=== PATIENT | female | born 1980 | race Caucasian/White ===

== ENCOUNTER 2019-11-23 23:49 | Observation (INO) | payer OTHER ==
[~2019-11-23] VITALS: Ht 162.6 cm; Wt 69.5 kg
[2019-11-24] VITALS (275 sets, daily range): BP systolic 109–128; BP diastolic 66–78; PULSE 63–108; TEMP 37.1; O2SAT 78–100
[2019-11-24] MEDS ORDERED: DULERA1 ARO IH (00:08)
[2019-11-24] MEDS ORDERED: PROVENTIL0.09 MG/A1 IH (00:08)
[2019-11-24] MEDS ORDERED: PREDNISONE20 MG PO ×2 (00:12)
[2019-11-24 03:13] LABS: BILIRUBIN,TOTAL 0.4 mg/dL (0.0-1.0); CREATININE, serum 0.9 (0.52-1.25); POTASSIUM 3.9 mmol/L (3.4-5.0); TOTAL PROTEIN 8.3 gm/dL (6.4-8.2)
--- NOTE | 2019-11-24 03:45 | NUR ---
RECEIVED REPORT FROM PATIENCE GONZÁLES IN ER. AWAITING ARRIVAL OF PT TO ICU 8.
[2019-11-24 04:08] LABS: HEMATOCRIT 38.9 % (37.0-47.0); HEMOGLOBIN 13.2 g/dl (12.5-16.0); MEAN CELL VOLUME 94 fl (80.0-100.0); MEAN CORPUSCULAR HEMOGLOBIN 32 pg (27.0-31.0); MEAN CORPUSCULAR HGB CONC 34 g/dl (33.0-37.0); MEAN PLATELET VOLUME 10.1 fl (7.4-10.4); PLATELET COUNT 443 K/mm3 (130-400); RED BLOOD COUNT 4.16 M/mm3 (4.10-5.30); REDCELL DISTRIBUTION WIDTH-CV 11.8 % (11.5-14.5)
--- NOTE | 2019-11-24 04:14 | NUR ---
PT ARRIVES O ICU 8 VIA STRETCHER ON 2L VIA NC. PT ABLE TO TRANSFER SELF TO ICU BED. PT NOTED TO BE SHAKING, STATES " I HAD A LOT OF TREATMENTS AND THEY MAKE ME JITTERY." STEADY GAIT NOTED. PLACED ON BEDSIDE CONTINUOUS MONITOR AND CALL LIGHT SYSTEM EDUCATION GIVEN, PT VERBALIZED UNDERSTANDING. PT ABLE TO TALK IN FULL SENTENCES BUT DOES APPEAR TO HAVE INCREASE WORK OF BREATHING. NO ACCESSORY MUSCLE USE NOTED AT THIS TIME. ON 2L VIA NC POX 98-100%. PT STATES SHE STILL FEELS QUITE A BIT FO TIGHTNESS IN HER CHEST AND FEELS LIKE SHE CAN'T GET A DEEP ENOUGH BREATH. RT AT BEDSIDE FOR BRIEF ASSESSMENT AND EXPLAIN BREATHING TX ORDERS, PT VERBALIZED UNDERSTANDING. WILL CONTINUE TO MONITOR CLOSELY. VSS.
[2019-11-24 04:24] LABS: BASO # 0.1 (0.0-0.2); BASO % 0.4 % (0.0-2.0); EOS # 0.3 (0.0-0.7); EOS % 2.8 % (0-4.0); GRAN # 4.7 (1.4-6.5); LYMPH # 5.6 (1.2-3.4); LYMPH % 48.8 % (20.0-51.0); MONO # 0.8 (0.1-0.6); MONO % 6.7 % (1.7-9.3)
[2019-11-24 04:56] LABS: EOSINOPHIL 8 % (0-4); LYMPHOCYTE 46 % (20.0-51.0); NEUTROPHILS 41 % (42.0-75.2); PLATELET ESTIMATE NORMAL (NORMAL)
--- NOTE | 2019-11-24 07:05 | NUR ---
DR PAZ AT BEDSIDE FOR ASSESSMENT AND DISCUSSED POC WITH PT. PT PLACED ON RA AT THIS TIME AND STAYS ABOVE 94% AT THIS TIME. NOTABLE RASPY VOICE WORSE COMPARED TO EARLIER, PHYSICIAN TAKES A LOOK IN THROAT AND STATES NO CONCERN AT THIS TIME.
--- NOTE | 2019-11-24 07:30 | NUR ---
EDUCATED PT ON IV INFILTRATION, DENIES WANTING A WARM BLANKET AT THIS TIME.
--- NOTE | 2019-11-24 09:18 | NUR ---
WANDY met with the patient to complete initial intake. The patient moved to [place] approximately two months ago. The patient lives in [place] with her boyfriend Rose Oakes. The patient denies DME use and is independent with ADLs. The patient does not have a PCP set up. But she has an appointment set up at the end of December at the [facility] office. The patient wants to contact [facility] to establish care there. The patient will receive medications at [facility]. The patient does not have advanced directives in the EMR. She thinks she may have one filled out in [facility] and it would designate her aunt Alice Kenney. However, the patient was interested in DPOA-HC form and would like to designate her boyfriend. DPOA-HC form provided. The patient plans to return home at discharge. There are no additional needs at this time.
--- NOTE | 2019-11-24 12:23 | NUR ---
PT transported to room 307 via wheelchair and care turned over to receiving RN.
--- NOTE | 2019-11-24 19:38 | NUR ---
Pt up to floor from the ICU today, med rec completed, no complaints since being on the floor.
--- NOTE | 2019-11-24 20:00 | NUR ---
Initial shift assessment done- denies pain, denies SOB, states she is starting to feel "tight" again and wanting a treatment- respiratory therapy up on floor to give night treatments now- o2 sat 97% on RA, states overall feeling much better tonight- IV fluids remain at 200cc/hr-will call PA to see if pt still needs IV fluids- voiding good amounts
[2019-11-25 00:10] VITALS: BP 129/78; PULSE 73; TEMP 97.5
[2019-11-25 03:56] VITALS: BP 122/80; PULSE 87; TEMP 97.6
[2019-11-25 06:57] LABS: BASO % 0.1 % (0.0-2.0); EOS # 0.2 (0.0-0.7); EOS % 0.7 % (0-4.0); GRAN # 17.7 (1.4-6.5); GRAN % 86.7 % (42.2-75.2); HEMOGLOBIN 11.3 g/dl (12.5-16.0); LYMPH # 1.3 (1.2-3.4); LYMPH % 6.3 % (20.0-51.0); MEAN CELL VOLUME 96 fl (80.0-100.0); MEAN CORPUSCULAR HEMOGLOBIN 33 pg (27.0-31.0); MEAN CORPUSCULAR HGB CONC 34 g/dl (33.0-37.0); RED BLOOD COUNT 3.48 M/mm3 (4.10-5.30); REDCELL DISTRIBUTION WIDTH-CV 12.2 % (11.5-14.5)
[2019-11-25 07:01] LABS: HEMATOCRIT 33.5 % (37.0-47.0); PLATELET COUNT 334 K/mm3 (130-400)
[2019-11-25 07:14] LABS: CALCIUM 9.2 mg/dL (8.4-10.2); CREATININE, serum 0.58 (0.52-1.25); POTASSIUM 4.2 mmol/L (3.4-5.0)
[2019-11-25 08:10] VITALS: BP 120/89; PULSE 74; TEMP 98.1
--- NOTE | 2019-11-25 08:19 | NUR ---
PATIENT ASSESSMENT COMPLETED. SHE HAS A DRY COUGH AND LUNGS ARE TIGHT UPON ASCULATION. IS A LITTLE SHORT OF BREATH WHILE LAYING IN BED, BUT FEELS ALOT BETTER. DENIES PAIN AT THIS TIME.
--- NOTE | 2019-11-25 09:36 | NUR ---
PATIENT RESTING IN BED NO NEEDS EXPRESSED AT THIS TIME.
[2019-11-25 11:48] VITALS: BP 131/82; PULSE 70; TEMP 97.9
[2019-11-25] MEDS ORDERED: MEDROL 4MG DOSPA4 MG PO (11:56)
--- NOTE | 2019-11-25 12:40 | NUR ---
DISCHARGE PAPERWORK REVIEWED WITH PATIENT SHE DENIES OTHER QUESTIONS.
--- NOTE | 2019-11-25 13:00 | NUR ---
PATIENT DISCHARGED TO HOME VIA WHEELCHAIR. BELONGINGS ARE GATHERED AND SENT WITH HER. SHE DENIES OTHER NEEDS AT THIS TIME.
== END 2019-11-25 12:45 | disposition home or self-care (01) ==
LOC: COL.ER 23:49 → ICU 11-24 02:57 → MEDICAL 11-24 02:57 → ICU 11-24 02:57 → MEDICAL 11-24 11:20
PROVIDERS: Emergency Medicine
DX: J45.901 Unspecified asthma with (acute) exacerbation (principal); Z79.899 Other long term (current) drug therapy; Z87.891 Personal history of nicotine dependence; Z90.710 Acquired absence of both cervix and uterus
CPT/HCPCS: G0378; J1650; J2920; J2930; J3475; J7030; J7512

== ENCOUNTER 2019-12-09 18:45 | Inpatient (IN) | payer OTHER ==
[~2019-12-09] VITALS: Ht 162.6 cm; Wt 69.5 kg
[~2019-12-09 18:45] MED LIST: DULERA1 ARO IH; MEDROL 4MG DOSPA4 MG PO; PREDNISONE20 MG PO; PROVENTIL0.09 MG/A1 IH
[2019-12-09] MEDS ORDERED: MEDROL 4MG DOSPA4 MG PO (19:28)
--- NOTE | 2019-12-09 21:21 | NUR ---
Report received from PATIENCE Hernández
--- NOTE | 2019-12-09 21:30 | NUR ---
Patient arrived to medical floor. Assessment complete. Lungs diminished in bases. Heart sounds normal. Bowels active x4. Pulses strong throughout. denies pain but reports chest tightness. Patient currently on room air. Orientated to medical floor. All questions answered. Velvet COTE notified of patient arrival.
[2019-12-09 21:41] VITALS: BP 121/68; PULSE 106; TEMP 98.8
--- NOTE | 2019-12-09 22:00 | NUR ---
Respiratory virus swab collected. Patient 89% on room air. Placed on 1.5 liters. Reports chest pain and difficulty breathing. Velvet PROPERTY SUPERVISOR notified. Will add orders for breathing tx. Respiratory notified. Will monitor.
[2019-12-09 23:30] VITALS: BP 123/70; PULSE 101; TEMP 98.3
[2019-12-09 23:37] LABS: BASO % 0.3 % (0.0-2.0); EOS % 0.2 % (0-4.0); GRAN # 7.5 (1.4-6.5); HEMOGLOBIN 11.5 g/dl (12.5-16.0); LYMPH # 0.9 (1.2-3.4); LYMPH % 10.3 % (20.0-51.0); MEAN CELL VOLUME 94 fl (80.0-100.0); MEAN CORPUSCULAR HEMOGLOBIN 32 pg (27.0-31.0); MEAN CORPUSCULAR HGB CONC 34 g/dl (33.0-37.0); MEAN PLATELET VOLUME 9.8 fl (7.4-10.4); MONO # 0.1 (0.1-0.6); MONO % 1.4 % (1.7-9.3); PLATELET COUNT 314 K/mm3 (130-400); RED BLOOD COUNT 3.61 M/mm3 (4.10-5.30); REDCELL DISTRIBUTION WIDTH-CV 11.7 % (11.5-14.5)
[2019-12-09 23:45] LABS: HEMATOCRIT 33.8 % (37.0-47.0)
[2019-12-09 23:49] LABS: ANION GAP 11 mmol/L (7-16); BLOOD UREA NITROGEN 11 mg/dL (7-17); CARBON DIOXIDE 22 mmol/L (22-30); CHLORIDE 104 mmol/L (98-107); CREATININE, serum 0.81 (0.52-1.25); GLUCOSE 163 mg/dL (74-106); POTASSIUM 3.1 mmol/L (3.4-5.0); SODIUM 137 mmol/L (137-145)
[2019-12-10 00:01] LABS: TROPONIN-I < 0.012 ng/mL (0.000-0.035)
--- NOTE | 2019-12-10 02:43 | NUR ---
PT SLEEPING AND WAS ON ROOM AIR AND VITALS WERE STABLE ON ROOM AIR 02 SAT AT 98% AND HEART RATE AND 109. NO DISTRESS NOTED
[2019-12-10 03:48] VITALS: BP 107/68; PULSE 83; TEMP 98.6
--- NOTE | 2019-12-10 04:08 | NUR ---
Resting in bed. Denies needs. Denies pain. Call light in reach.
--- NOTE | 2019-12-10 06:17 | NUR ---
Patient had uneventful night. Resting in bed this AM. Call light in reach.
[2019-12-10 06:30] LABS: BASO % 0.1 % (0.0-2.0); GRAN # 9.2 (1.4-6.5); GRAN % 89.5 % (42.2-75.2); HEMOGLOBIN 11.1 g/dl (12.5-16.0); LYMPH # 0.9 (1.2-3.4); LYMPH % 8.5 % (20.0-51.0); MEAN CELL VOLUME 94 fl (80.0-100.0); MEAN CORPUSCULAR HEMOGLOBIN 31 pg (27.0-31.0); MEAN CORPUSCULAR HGB CONC 34 g/dl (33.0-37.0); MEAN PLATELET VOLUME 9.9 fl (7.4-10.4); MONO # 0.1 (0.1-0.6); MONO % 0.8 % (1.7-9.3); PLATELET COUNT 328 K/mm3 (130-400); RED BLOOD COUNT 3.53 M/mm3 (4.10-5.30); REDCELL DISTRIBUTION WIDTH-CV 11.8 % (11.5-14.5)
[2019-12-10 06:37] LABS: HEMATOCRIT 33.1 % (37.0-47.0)
[2019-12-10 06:49] LABS: ANION GAP 10 mmol/L (7-16); BLOOD UREA NITROGEN 10 mg/dL (7-17); CALCIUM 8.8 mg/dL (8.4-10.2); CARBON DIOXIDE 22 mmol/L (22-30); CHLORIDE 107 mmol/L (98-107); CREATININE, serum 0.63 (0.52-1.25); GLUCOSE 139 mg/dL (74-106); POTASSIUM 4.3 mmol/L (3.4-5.0); SODIUM 138 mmol/L (137-145)
[2019-12-10 07:00] LABS: TROPONIN-I 6 HR POST INITIAL < 0.012 ng/mL (0.000-0.034)
--- NOTE | 2019-12-10 07:04 | NUR ---
Report given to PATIENCE Whiting
--- NOTE | 2019-12-10 07:40 | NUR ---
DENIED SOB, CHEST PAIN, OR PAIN OF ANY SORT. WENT OVER FAMILY HISTORY, PERFORMED ASSESSMENT, GAVE MEDICATIONS AND EDUCATED ON THEIR USES. PT APPEARS PLEASANT, RECEIVED BREATHING TREATMENT WITH RT. NO OTHER NEEDS AT THIS TIME.
[2019-12-10 08:19] VITALS: BP 108/61; PULSE 78; TEMP 98.6
--- NOTE | 2019-12-10 10:10 | NUR ---
PT REPORTED FEELING SOME CHEST TIGHTNESS, PT HAVING SOB, RESPIRATORY THERAPY CALLED FOR PRN BREATHING TREATMENT. PT CURRENTLY SITTING WITH HOB UP.
--- NOTE | 2019-12-10 11:05 | NUR ---
PT STATED BREATHING TREATMENT HELPED A LOT. DENIES SOB AND CHEST PAIN AT THIS TIME.
[2019-12-10 11:44] VITALS: BP 110/64; PULSE 70; TEMP 98.4
--- NOTE | 2019-12-10 11:45 | NUR ---
PT COMPLAINING OF ABDOMINAL CRAMPING. PA NOTIFIED.
--- NOTE | 2019-12-10 12:05 | NUR ---
Plan: To return home with boyfriennataly Arana [phone] as care support and EMR. patient reports that she does have a DPOA in [place], she declined a new one at this time. Patient currently resides in [facility]. Assess: SW met with patient at her bedside. Patient denied the use of DME and indicated that [facility], with [facility] coming [facility] 08. Patient reports that she gets her medications from the [facility] as well. patient did express some concern about having her VA appointment so far out, and that she could not get anything sooner. plan: Weekend SW indicated that a note would be left for weekday SW to follow up to see if patient could be referred to another provider. SW declined any other services at this time.
--- NOTE | 2019-12-10 16:23 | NUR ---
FRESH ICE WATER BROUGHT IN FOR PT, PT HAS NO OTHER NEEDS AT THIS TIME.
[2019-12-10 17:27] VITALS: BP 130/73; PULSE 86; TEMP 98.4
--- NOTE | 2019-12-10 17:33 | NUR ---
PT HAD ONE EP. OF SOB AND CHEST PAIN RELIEVED BY PRN BREATHING TREATMENT. WATER AT BEDSIDE, BED IN LOW POSITION, DENIES PAIN/DISCOMFORT AT THIS TIME. NO OTHER NEEDS AT THIS TIME. INDEPENDENT IN ROOM. SLIGHT TREMOR IN HAND WHEN GOIND TO GRAB ITEMS.
--- NOTE | 2019-12-10 19:01 | NUR ---
DURING BEDSIDE SHIFT REPORT PT REPORTED SOME SOB AND CHEST TIGHTNESS. RT CALLED FOR BREATHING TREATMENT.
--- NOTE | 2019-12-10 19:15 | NUR ---
Received report from Johanne. Seen patient awake, on a sitting position. on the bedside. She's not wearing her oxygen. She seems to be short of air while talking to us. Called RT to give early breathing treatment. Wiht IV on left wrist infusing NS at 125ml/hr. Denies pain.
[2019-12-10 19:23] VITALS: BP 131/61; PULSE 121; TEMP 98.2
[2019-12-10 23:40] VITALS: BP 122/68; PULSE 90; TEMP 98.3
[2019-12-11 03:49] VITALS: BP 102/58; PULSE 86; TEMP 97.9
--- NOTE | 2019-12-11 06:42 | NUR ---
Patient had an uneventful night. Denies shortness of breath. This morning she states she's been coughing for few minutes after her breathing treatment but was resolved eventually. Denies pain. Will endorse to day shfit nurse.
[2019-12-11 07:49] VITALS: BP 115/66; PULSE 69; TEMP 97.6
[2019-12-11 08:30] VITALS: BP 129/83; PULSE 92; TEMP 98.3
--- NOTE | 2019-12-11 08:45 | NUR ---
PT IN ROOM. PT HAS LABORED BREATHING, BASES OF LUNGS DIMINISHED, TACHYCARDIA PRESENT. CALLED RT FOR PRN BREATHING TREATMENT. PT STATES SHE IS READY TO GO HOME. BED IN LOW POSITION, CALL LIGHT WITHIN REACH, DID NOT EAT BREAKFAST, REFUSED SHOWER HERE, WANTS TO WAIT UNTIL SHE GETS HOME. NO OTHER NEEDS AT THIS TIME. PT DRY COUGHING PRESENT. /SIG OTHER AT BEDSIDE.
[2019-12-11 11:56] VITALS: BP 119/82; PULSE 70; TEMP 97.6
[2019-12-11 16:20] VITALS: BP 112/77; PULSE 67; TEMP 98.5
--- NOTE | 2019-12-11 17:26 | NUR ---
PT STATES BREATHING TREATMENTS SHE GETS NOW ARE MUCH MORE EFFECTIVE. PT HAD ONE EPISODE OF SOB AND CHEST PAIN BEFORE RT MEDICATIONS WERE CHANGED. PT DENIES PAIN OR DISCOMFORT, FLUIDS DC'D, WATER AT BEDSIDE, NO OTHER NEEDS AT THIS TIME.
[2019-12-11 20:38] VITALS: BP 104/66; PULSE 70; TEMP 98.4
--- NOTE | 2019-12-11 21:20 | NUR ---
Pt. sitting up in bed at this time. Pt. is A&OX3, assessment complete. INT to lt. wrist patent. Pt. denies SOA, or pain at this time. Pt. denies further needs, call light within reach.
[2019-12-12 00:01] VITALS: BP 115/82; PULSE 68; TEMP 97.5
[2019-12-12 04:50] VITALS: BP 115/78; PULSE 54; TEMP 98.3
--- NOTE | 2019-12-12 06:18 | NUR ---
Pt. slept well through the night. status unchanged. Pt. denies needs at this time.
--- NOTE | 2019-12-12 07:13 | NUR ---
REPORT TAKEN FROM PATIENCE WARE. PT IN BED COMFORTABLE, EXPRESSES EXCITEMENT AT GOING HOME, SAYS NEW MEDS ARE HELPING A LOT. WATER AT BEDSIDE, NO OTHER NEEDS AT THIS TIME.
[2019-12-12 07:26] VITALS: BP 129/79; PULSE 54; TEMP 97.5
[2019-12-12 07:35] LABS: ALPHA 1 ANTITRYPSIN TOTAL 98.3 mg/dL (())
--- NOTE | 2019-12-12 08:00 | NUR ---
PT IN BED, EXPRESSES EXCITEMENT TO GO HOME. PT TOOK MEDS, ASSESSMENT PERFORMED, BED IN LOW POSITION, WATER AT BEDSIDE, PT DRESSED AND HAS BELONGINGS PACKED FOR DISCHARGE. NO OTHER NEEDS AT THIS TIME.
[2019-12-12] MEDS ORDERED: CLARITIN 1010 MG/TAB PO (10:00)
[2019-12-12] MEDS ORDERED: DULERA1 AR1 IH (10:00)
[2019-12-12] MEDS ORDERED: SPIRIVA RE2.5 MCG/Ac IH (10:01)
[2019-12-12] MEDS ORDERED: SINGULAIR 110 MG/TAB PO (10:03)
[2019-12-12] MEDS ORDERED: PREDNISONE20 MG PO (10:07)
--- NOTE | 2019-12-12 11:11 | NUR ---
Patient to discharge today. Airline Hostess met with patient to follow up on primary care provider. Patient states she plans to stay with her VA provider and has an appointment scheduled for 01/09/20. Patient states she hoped to get in sooner but feels better now that she is on new medications. Patient states she is eager to go home. No additional needs at this time.
--- NOTE | 2019-12-12 11:30 | NUR ---
PT ESCORTED OUT TO VEHICLE WITH PT MYRTLE, DISCHARGE EDUCATION PROVIDED, DISCHARGE PAPERWORK TAKEN OUT WITH PATIENT. IV DISCONTINUED. NO OTHER NEEDS AT THIS TIME.
== END 2019-12-12 11:30 | disposition home or self-care (01) | DRG 203 ==
LOC: COL.ER 18:45 → MEDICAL 20:39
PROVIDERS: Internal Medicine Pulmonary Disease; Nurse Practitioner Family; ADMIT Internal Medicine
DX: J45.51 Severe persistent asthma with (acute) exacerbation (principal); R00.0 Tachycardia, unspecified; E87.6 Hypokalemia; D64.9 Anemia, unspecified; R73.9 Hyperglycemia, unspecified; T38.0X5A Adverse effect of glucocorticoids and synthetic analogues, initial encounter; K21.9 Gastro-esophageal reflux disease without esophagitis; E87.5 Hyperkalemia; Z90.710 Acquired absence of both cervix and uterus; Z87.891 Personal history of nicotine dependence
CPT/HCPCS: 99232-AI; 99239; A4614; A9284; G0378; J1650; J1815; J2060; J2920; J2930; J3475; J7030; J7512

== ENCOUNTER → 2020-01-31 | Outpatient (CLI) | payer OTHER ==
[~2020-01-31] MED LIST changes: +CLARITIN 1010 MG/TAB PO; +DULERA1 AR1 IH; +SINGULAIR 110 MG/TAB PO; +SPIRIVA RE2.5 MCG/Ac IH
== END ==
LOC: COL.RAD 11:15
DX: J45.909 Unspecified asthma, uncomplicated (principal)

== ENCOUNTER 2020-03-09 00:18 | Emergency (ER) | payer OTHER ==
[~2020-03-09] VITALS: Ht 162.6 cm; Wt 77.3 kg
[2020-03-09 01:13] LABS: BASO % 0.4 % (0.0-2.0); EOS # 0.1 (0.0-0.7); EOS % 1.5 % (0-4.0); GRAN % 52.9 % (42.2-75.2); HEMATOCRIT 39.8 % (37.0-47.0); HEMOGLOBIN 13.5 g/dl (12.5-16.0); LYMPH # 3.7 (1.2-3.4); MEAN CELL VOLUME 93 fl (80.0-100.0); MEAN CORPUSCULAR HEMOGLOBIN 32 pg (27.0-31.0); MEAN CORPUSCULAR HGB CONC 34 g/dl (33.0-37.0); MEAN PLATELET VOLUME 9.2 fl (7.4-10.4); MONO # 0.5 (0.1-0.6); MONO % 5.6 % (1.7-9.3); PLATELET COUNT 340 K/mm3 (130-400); RED BLOOD COUNT 4.28 M/mm3 (4.10-5.30); REDCELL DISTRIBUTION WIDTH-CV 12.3 % (11.5-14.5)
[2020-03-09 01:23] LABS: ALBUMIN 5.2 gm/dL (3.5-5.0); BILIRUBIN,TOTAL 0.3 mg/dL (0.0-1.0); CREATININE, serum 0.7 (0.52-1.25); MAGNESIUM 2.4 mg/dL (1.6-2.3); POTASSIUM 3.3 mmol/L (3.4-5.0); TOTAL PROTEIN 8.5 gm/dL (6.4-8.2)
[2020-03-09] MEDS ORDERED: PREDNISONE10 MG PO (05:29)
[2020-03-09 05:51] VITALS: BP 121/76; PULSE 121; TEMP 98.8
== END 2020-03-09 05:53 | disposition home or self-care (01) ==
LOC: COL.ER 00:18
PROVIDERS: Emergency Medicine
DX: J45.901 Unspecified asthma with (acute) exacerbation (principal); Z79.52 Long term (current) use of systemic steroids; Z90.710 Acquired absence of both cervix and uterus
CPT/HCPCS: J2930; J3475; J7030

== ENCOUNTER 2020-06-13 19:41 | Emergency (ER) | payer OTHER ==
[~2020-06-13] VITALS: Ht 162.6 cm; Wt 68.2 kg
[~2020-06-13 19:41] MED LIST changes: +PREDNISONE10 MG PO
[2020-06-13] MEDS ORDERED: DECADRON6 MG PO (21:22)
[2020-06-13 21:54] VITALS: BP 126/71; PULSE 98; TEMP 98
== END 2020-06-13 21:55 | disposition home or self-care (01) ==
LOC: COL.ER 19:41
DX: U07.1 COVID-19 (principal); J45.909 Unspecified asthma, uncomplicated; Z79.52 Long term (current) use of systemic steroids
CPT/HCPCS: J1100; J8540

== ENCOUNTER 2020-08-25 06:18 | Inpatient (IN) | payer OTHER ==
[~2020-08-25] VITALS: Ht 167.6 cm; Wt 68.2 kg
[~2020-08-25 06:18] MED LIST changes: +DECADRON6 MG PO
[2020-08-25 08:00] LABS: BASO % 0.2 % (0.0-2.0); EOS # 0.6 (0.0-0.7); EOS % 6.2 % (0-4.0); GRAN # 4.8 (1.4-6.5); GRAN % 51.5 % (42.2-75.2); HEMATOCRIT 41.2 % (37.0-47.0); HEMOGLOBIN 13.9 g/dl (12.5-16.0); LYMPH # 3.3 (1.2-3.4); LYMPH % 35.8 % (20.0-51.0); MEAN CELL VOLUME 95 fl (80.0-100.0); MEAN CORPUSCULAR HEMOGLOBIN 32 pg (27.0-31.0); MEAN CORPUSCULAR HGB CONC 34 g/dl (33.0-37.0); MEAN PLATELET VOLUME 9.4 fl (7.4-10.4); MONO # 0.6 (0.1-0.6); PLATELET COUNT 333 K/mm3 (130-400); RED BLOOD COUNT 4.36 M/mm3 (4.10-5.30); REDCELL DISTRIBUTION WIDTH-CV 12.2 % (11.5-14.5)
[2020-08-25 08:15] LABS: ALBUMIN 4.7 gm/dL (3.5-5.0); BILIRUBIN,TOTAL 0.8 mg/dL (0.0-1.0); CALCIUM 9.9 mg/dL (8.4-10.2); CREATININE, serum 0.74 (0.52-1.25); TOTAL PROTEIN 7.6 gm/dL (6.4-8.2)
[2020-08-25 13:48] LABS: TROPONIN-I < 0.012 ng/mL (0.000-0.035)
[2020-08-25] MEDS ORDERED: WELLBUTRIN XL150 MG PO (15:18)
[2020-08-25] MEDS ORDERED: PRILOSEC 20MG20 MG PO (15:55)
[2020-08-25 16:07] VITALS: BP 136/94; PULSE 103; TEMP 98
[2020-08-25 16:08] VITALS: BP 136/94; PULSE 103; TEMP 98
--- NOTE | 2020-08-25 18:14 | NUR ---
Pt resting in room, up ad deb with visitor at bedside, doing well but continues to have SOB with any activity, encouraged frequent rests. Denies needs, will give bedside shift report to nightshift nurse who will resume care.
[2020-08-25 20:30] VITALS: BP 134/83; PULSE 100; TEMP 98
[2020-08-26 00:09] VITALS: BP 110/67; PULSE 83; TEMP 97.8
[2020-08-26 04:15] VITALS: BP 117/76; PULSE 80; TEMP 98.2
[2020-08-26 06:49] LABS: BASO % 0.2 % (0.0-2.0); GRAN # 15.8 (1.4-6.5); GRAN % 88.8 % (42.2-75.2); HEMATOCRIT 38.1 % (37.0-47.0); HEMOGLOBIN 12.8 g/dl (12.5-16.0); LYMPH # 1.1 (1.2-3.4); LYMPH % 6.4 % (20.0-51.0); MEAN CELL VOLUME 96 fl (80.0-100.0); MEAN CORPUSCULAR HEMOGLOBIN 32 pg (27.0-31.0); MEAN CORPUSCULAR HGB CONC 34 g/dl (33.0-37.0); MEAN PLATELET VOLUME 10.4 fl (7.4-10.4); MONO # 0.7 (0.1-0.6); MONO % 3.9 % (1.7-9.3); PLATELET COUNT 340 K/mm3 (130-400); RED BLOOD COUNT 3.98 M/mm3 (4.10-5.30); REDCELL DISTRIBUTION WIDTH-CV 12.5 % (11.5-14.5)
[2020-08-26 07:20] VITALS: BP 112/65; PULSE 80; TEMP 97.5
[2020-08-26 07:37] LABS: ALBUMIN 4.2 gm/dL (3.5-5.0); BILIRUBIN,TOTAL 0.6 mg/dL (0.0-1.0); CALCIUM 9.6 mg/dL (8.4-10.2); CREATININE, serum 0.66 (0.52-1.25); POTASSIUM 4.4 mmol/L (3.4-5.0); TOTAL PROTEIN 6.9 gm/dL (6.4-8.2)
--- NOTE | 2020-08-26 08:47 | NUR ---
Assessment completed, alert/oriented, vital signs stable, denies pain or discomfort, reports feeling much improve and breathing is easier, No audible wheezing noted, lungs CTA/ slightly diminished but good air movement noted throughout, she is on room air and denies SOA at rest, IV steroids given as scheduled, heart RRR/ SR on tele, patient indepednent in the room, ate small amount of breakfast, denies needs and hoping to go home today
[2020-08-26] MEDS ORDERED: PROVENTIL0.09 MG/A1 IH (09:28)
[2020-08-26] MEDS ORDERED: PREDNISONE20 MG PO (09:29)
--- NOTE | 2020-08-26 09:42 | NUR ---
WANDY met with the patient to discuss discharge plan. The patient lives in [place] with two roommates. She reports independence with ADLs and does not have any DME. The patient's PCP is Samantha Montoya at the [facility] and she receives her medications from the [facility]. The patient does not have a DPOA-HC and she was not interested in completing one at this time. The patient's son, Christiano (ph#[phone]), is her person to contact. He lives in [facility]. The patient plans to return home with her roommates today. No additional needs at this time.
--- NOTE | 2020-08-26 10:50 | NUR ---
Discharge orders discussed with the patient, instructed to take meds as prescribed and finish course of Steroid taper, sctipt sent to pharmacy for her, Insturcted to follow up with PCP and Pulm as scheduled, IV and tele removed, verbalized understanding of discharge instructions, she is ambulatory and I escorted her out thhe door
== END 2020-08-26 10:30 | disposition home or self-care (01) | DRG 203 ==
LOC: COL.ER 06:18 → MEDICAL 13:07
PROVIDERS: Emergency Medicine; ADMIT Family Medicine
DX: J45.41 Moderate persistent asthma with (acute) exacerbation (principal); K21.9 Gastro-esophageal reflux disease without esophagitis; E87.6 Hypokalemia; D72.19 Other eosinophilia; T38.0X5A Adverse effect of glucocorticoids and synthetic analogues, initial encounter; Z86.16 Personal history of COVID-19; F41.9 Anxiety disorder, unspecified; Z20.822 Contact with and (suspected) exposure to COVID-19; Z87.891 Personal history of nicotine dependence; Z90.710 Acquired absence of both cervix and uterus
CPT/HCPCS: 99239; A4614; J1650; J2920; J2930; J3475; J7030; J7120

== ENCOUNTER 2020-10-07 00:37 | Inpatient (IN) | payer OTHER ==
[2020-10-07] VITALS (527 sets, daily range): BP systolic 124–128; BP diastolic 88–96; PULSE 80–100; TEMP 97.8–98.7; O2SAT 80–99
[~2020-10-07] VITALS: Ht 162.6 cm; Wt 69.1 kg
[~2020-10-07 00:37] MED LIST changes: +PRILOSEC 20MG20 MG PO; +WELLBUTRIN XL150 MG PO
[2020-10-07 01:08] LABS: BASO # 0.1 (0.0-0.2); BASO % 0.7 % (0.0-2.0); EOS # 0.6 (0.0-0.7); EOS % 7.7 % (0-4.0); GRAN # 2.6 (1.4-6.5); GRAN % 31.8 % (42.2-75.2); HEMATOCRIT 42.4 % (37.0-47.0); HEMOGLOBIN 14.5 g/dl (12.5-16.0); LYMPH # 4.1 (1.2-3.4); LYMPH % 49.5 % (20.0-51.0); MEAN CELL VOLUME 95 fl (80.0-100.0); MEAN CORPUSCULAR HEMOGLOBIN 32 pg (27.0-31.0); MEAN CORPUSCULAR HGB CONC 34 g/dl (33.0-37.0); MEAN PLATELET VOLUME 9.6 fl (7.4-10.4); MONO # 0.8 (0.1-0.6); MONO % 10.1 % (1.7-9.3); PLATELET COUNT 398 K/mm3 (130-400); RED BLOOD COUNT 4.47 M/mm3 (4.10-5.30); REDCELL DISTRIBUTION WIDTH-CV 12.4 % (11.5-14.5)
[2020-10-07 01:22] LABS: CALCIUM 9.6 mg/dL (8.4-10.2); CREATININE, serum 0.67 (0.52-1.25); POTASSIUM 3.6 mmol/L (3.4-5.0)
--- NOTE | 2020-10-07 10:04 | NUR ---
Can Closing Machine Operator met with the patient to complete intake. The patient lives in [place] with two roommates. The patient denies DME use and is independent. The patient's PCP is Dr. Carrion with the [facility]. [facility] also provides medications for the patient. The patient does not have advanced directives and was not interested in DPOA-HC form. The patient is not but has a son, Christiano Stratton. The patient plans to return home at discharge. The patient is currenlty on oxygen and is not on oxygen at baseline. will continue to monitor for oxygen needs, if any, at discharge. Discharge disposition: Home
--- NOTE | 2020-10-07 20:15 | NUR ---
Patient resting quietly in bed. She is on the phone with family at time of assessment. Denies any pain or discomfort; all vitals within normal limits. Remains on room air at this time, oxygen saturation 92-95% and tolerating well. Lung sounds diminished throughout. No further needs noted.
[2020-10-08] VITALS (42 sets, daily range): BP systolic 100–122; BP diastolic 68–86; PULSE 65–79; TEMP 97.8–98.6; O2SAT 81–93
[2020-10-08 05:20] LABS: BASO % 0.2 % (0.0-2.0); EOS % 0.1 % (0-4.0); GRAN # 15.1 (1.4-6.5); GRAN % 87.7 % (42.2-75.2); HEMATOCRIT 39.8 % (37.0-47.0); HEMOGLOBIN 13.6 g/dl (12.5-16.0); LYMPH # 1.3 (1.2-3.4); LYMPH % 7.3 % (20.0-51.0); MEAN CELL VOLUME 95 fl (80.0-100.0); MEAN CORPUSCULAR HEMOGLOBIN 33 pg (27.0-31.0); MEAN CORPUSCULAR HGB CONC 34 g/dl (33.0-37.0); MEAN PLATELET VOLUME 9.8 fl (7.4-10.4); MONO # 0.7 (0.1-0.6); PLATELET COUNT 409 K/mm3 (130-400); RED BLOOD COUNT 4.19 M/mm3 (4.10-5.30); REDCELL DISTRIBUTION WIDTH-CV 12.7 % (11.5-14.5)
[2020-10-08 05:34] LABS: CALCIUM 9.5 mg/dL (8.4-10.2); CREATININE, serum 0.64 (0.52-1.25)
--- NOTE | 2020-10-08 11:21 | NUR ---
Report phoned to PATIENCE Laguerre
--- NOTE | 2020-10-08 12:00 | NUR ---
Patient arrived to the floor from ICU around 1145. Patient is alert and oriented. Denies pain and nausea. She is on her computer doing a class. Ellie chest pain or shortness of breath at this time. Oriented to room. No other changes at this time. Call light within reach.
--- NOTE | 2020-10-08 18:30 | NUR ---
Patient has been doing well this afternoon. No changes from when she was transferred. No complaints of shortness of air, pain or nausea. She is independent in the room. No other changes at this time. Call light within reach.
--- NOTE | 2020-10-08 20:30 | NUR ---
Initial shift assessment done- states feels "ok" tonight, VSS, just had a respiratory treatment from RT, Lung sounds remain tight, few exp wheezes. Will call for any assistance- No requests at this time.
[2020-10-09 04:28] VITALS: BP 118/73; PULSE 59; TEMP 97.9
--- NOTE | 2020-10-09 06:01 | NUR ---
Quiet night, Has been sleeping most of the night, o2 sats 95-96% on room air. No requests throughout the night.
[2020-10-09 07:32] VITALS: BP 133/92; PULSE 57; TEMP 97.3
[2020-10-09 07:34] LABS: BASO % 0.1 % (0.0-2.0); EOS % 0.1 % (0-4.0); GRAN # 12.7 (1.4-6.5); GRAN % 79.4 % (42.2-75.2); HEMATOCRIT 39.8 % (37.0-47.0); HEMOGLOBIN 13.3 g/dl (12.5-16.0); LYMPH # 1.7 (1.2-3.4); LYMPH % 10.8 % (20.0-51.0); MEAN CELL VOLUME 98 fl (80.0-100.0); MEAN CORPUSCULAR HEMOGLOBIN 33 pg (27.0-31.0); MEAN CORPUSCULAR HGB CONC 33 g/dl (33.0-37.0); MEAN PLATELET VOLUME 10.2 fl (7.4-10.4); MONO # 1.4 (0.1-0.6); MONO % 8.9 % (1.7-9.3); PLATELET COUNT 356 K/mm3 (130-400); RED BLOOD COUNT 4.05 M/mm3 (4.10-5.30); REDCELL DISTRIBUTION WIDTH-CV 12.6 % (11.5-14.5)
--- NOTE | 2020-10-09 09:36 | NUR ---
Initial visit; Patient thanked Rotary Cutter Operator for looking in on her and offering God's blessings and get well.
[2020-10-09] MEDS ORDERED: PREDNISONE20 MG PO (10:18)
[2020-10-09] MEDS ORDERED: SPIRIVA RE2.5 MCG/Ac IH (10:19)
[2020-10-09] MEDS ORDERED: FLOVENT 110MCG7.9 GM IH (10:21)
--- NOTE | 2020-10-09 10:28 | NUR ---
Utility Pipe Layer attended clinical rounds with the team. The patient is to tentatively discharge home today, 10/09. The patient is independent and has no needs.
--- NOTE | 2020-10-09 11:16 | NUR ---
Discharge instructions discussed w/pt and all questions answered. IV to left wrist removed, tip intact. Pt ambulated out, escorted by medical director community center. All belongings in possession.
== END 2020-10-09 11:15 | disposition home or self-care (01) | DRG 202 ==
LOC: COL.ER 00:37 → ICU 01:50 → MEDICAL 10-08 12:30
PROVIDERS: Emergency Medicine; ADMIT Hospitalist
DX: J45.41 Moderate persistent asthma with (acute) exacerbation (principal); J82.83 Eosinophilic asthma; K21.9 Gastro-esophageal reflux disease without esophagitis; I10 Essential (primary) hypertension; F41.9 Anxiety disorder, unspecified; T38.0X5A Adverse effect of glucocorticoids and synthetic analogues, initial encounter; Z79.51 Long term (current) use of inhaled steroids; Z87.891 Personal history of nicotine dependence; T44.5X6A Underdosing of predominantly beta-adrenoreceptor agonists, initial encounter; Z91.128 Patient's intentional underdosing of medication regimen for other reason; Z79.899 Other long term (current) drug therapy; D72.829 Elevated white blood cell count, unspecified
CPT/HCPCS: 99232-AI; 99239; A4614; A9284; J1650; J2930; J3475; J7120; J7512

== ENCOUNTER 2021-05-24 04:24 | Observation (INO) | payer OTHER ==
[~2021-05-24] VITALS: Ht 162.6 cm; Wt 75.5 kg
[~2021-05-24 04:24] MED LIST changes: +FLOVENT 110MCG7.9 GM IH
[2021-05-24 06:46] LABS: BASO # 0.1 K/mm3 (0.0-0.2); BASO % 0.4 % (0.0-2.0); EOS # 0.5 K/mm3 (0.0-0.7); EOS % 3.8 % (0-4.0); GRAN # 8.6 K/mm3 (1.4-6.5); GRAN % 68.2 % (42.2-75.2); HEMATOCRIT 39.6 % (37.0-47.0); HEMOGLOBIN 13.8 g/dl (12.5-16.0); LYMPH # 2.6 K/mm3 (1.2-3.4); LYMPH % 20.6 % (20.0-51.0); MEAN CELL VOLUME 91 fl (80.0-100.0); MEAN CORPUSCULAR HEMOGLOBIN 32 pg (27.0-31.0); MEAN CORPUSCULAR HGB CONC 35 g/dl (33.0-37.0); MEAN PLATELET VOLUME 9.5 fl (7.4-10.4); MONO # 0.8 K/mm3 (0.1-0.6); MONO % 6.6 % (1.7-9.3); PLATELET COUNT 332 K/mm3 (130-400); RED BLOOD COUNT 4.36 M/mm3 (4.10-5.30); REDCELL DISTRIBUTION WIDTH-CV 12.1 % (11.5-14.5)
[2021-05-24 07:02] LABS: ARTERIAL BLD GAS O2 SATURATION 92.6 % (92-100); ARTERIAL BLD GAS TCO2 CT 21.3; ARTERIAL BLOOD GAS BASE EXCESS -3.7 (-2-2); ARTERIAL BLOOD GAS HCO3 20.3 meq/L (22-26); ARTERIAL BLOOD GAS PCO2 33.9 mmHg (35-45); ARTERIAL BLOOD GAS PO2 65.6 mmHg (80-100)
[2021-05-24 07:03] LABS: ALBUMIN 4.6 gm/dL (3.5-5.0); BILIRUBIN,TOTAL 0.7 mg/dL (0.2-1.2); CALCIUM 9.7 mg/dL (8.4-10.2); CREATININE, serum 0.85 mg/dL (0.57-1.11); POTASSIUM 3.3 mmol/L (3.5-4.5); TOTAL PROTEIN 7.8 gm/dL (6.2-8.1)
--- NOTE | 2021-05-24 11:35 | NUR ---
Patient arrived to the floor from ED. Patient is A&Ox4 and independent.
[2021-05-24 13:15] VITALS: BP 104/55; PULSE 105; TEMP 98.2
--- NOTE | 2021-05-24 17:49 | NUR ---
Patient appears to be doing much better since receiving an IV dose of solu-medrol. Patient is able to speak without becoming short of breath and wheezing is no longer audible. Patient has been active in her room.
[2021-05-24 18:25] VITALS: BP 111/69; PULSE 94; TEMP 97.8
[2021-05-24 20:00] VITALS: BP 104/61; PULSE 92; TEMP 98.8
[2021-05-25 00:31] VITALS: BP 121/80; PULSE 78; TEMP 99.4
[2021-05-25 04:58] VITALS: BP 102/68; PULSE 89; TEMP 98.1
--- NOTE | 2021-05-25 05:49 | NUR ---
PT HAD UNEVENTFUL NIGHT THIS SHIFT. 02 ROOM AIR. COUGH REMAINS. MEDICATION ORDERED AND HAS PROVIDED COUGH SYMTPOM RELIEF. ALL NEEDS MET THIS NIGHT. CALL LIGHT WITHIN REACH.
[2021-05-25 06:43] LABS: HEMATOCRIT 38.6 % (37.0-47.0); HEMOGLOBIN 13.4 g/dl (12.5-16.0); MEAN CELL VOLUME 93 fl (80.0-100.0); MEAN CORPUSCULAR HEMOGLOBIN 32 pg (27.0-31.0); MEAN CORPUSCULAR HGB CONC 35 g/dl (33.0-37.0); MEAN PLATELET VOLUME 10.2 fl (7.4-10.4); PLATELET COUNT 364 K/mm3 (130-400); RED BLOOD COUNT 4.17 M/mm3 (4.10-5.30); REDCELL DISTRIBUTION WIDTH-CV 12.4 % (11.5-14.5)
[2021-05-25 07:05] LABS: CALCIUM 9.7 mg/dL (8.4-10.2); CREATININE, serum 0.81 mg/dL (0.57-1.11); MAGNESIUM 2.5 mg/dL (1.6-2.6); POTASSIUM 4.4 mmol/L (3.5-4.5)
[2021-05-25 09:34] VITALS: BP 110/68; PULSE 86; TEMP 98.4
--- NOTE | 2021-05-25 10:19 | NUR ---
Patient standing at the sink brushing her teeth upon entering the room. Patient remains independent in her room. Feels better from last night. Patient feels that cough is worse at night, and will call if it worsens and she needs robtussin.
[2021-05-25 12:38] VITALS: BP 110/71; PULSE 68; TEMP 98.3
--- NOTE | 2021-05-25 13:38 | NUR ---
Plan is to go home. SW met with patient in room about care. Patient reports that she has family and friends in town. Patient educated that her son is her first contact Christiano Stratton and Friend Corina Salas , Patient reports that she has a PCP through the [facility] in [place] Dr. Martel and [facility] with [facility] too. Patient reports that she has a nebulizer that she uses on a regular due to it being medical related. Patient denies using the supports for mobility, or heart. Educated on services with case management. NF.
[2021-05-25] MEDS ORDERED: PREDNISONE10 MG PO (14:54)
--- NOTE | 2021-05-25 16:51 | NUR ---
Patient discharged home. IV was discontinued and patient was escorted out by Elke MCKEON.
== END 2021-05-25 16:30 | disposition home or self-care (01) ==
LOC: COL.ER 04:24 → MEDICAL 06:23
PROVIDERS: Student in an Organized Health Care Education/Training Program; ADMIT Internal Medicine
DX: J45.51 Severe persistent asthma with (acute) exacerbation (principal); D72.829 Elevated white blood cell count, unspecified; E87.6 Hypokalemia; K21.9 Gastro-esophageal reflux disease without esophagitis; Z79.899 Other long term (current) drug therapy; Z87.891 Personal history of nicotine dependence; Z20.822 Contact with and (suspected) exposure to COVID-19
CPT/HCPCS: G0378; J2920; J3475; J7512

== ENCOUNTER 2021-06-20 00:41 | Emergency (ER) | payer OTHER ==
[~2021-06-20] VITALS: Ht 162.6 cm; Wt 72.7 kg
[2021-06-20 00:44] VITALS: TEMP 98.6
[2021-06-20 01:07] LABS: BASO % 0.5 % (0.0-2.0); EOS # 1.4 K/mm3 (0.0-0.7); EOS % 16.4 % (0.0-4.0); GRAN # 2.8 K/mm3 (1.4-6.5); GRAN % 33.6 % (42.2-75.2); HEMATOCRIT 40.9 % (37.0-47.0); HEMOGLOBIN 14.3 g/dl (12.5-16.0); LYMPH # 3.4 K/mm3 (1.2-3.4); LYMPH % 40.4 % (20.0-51.0); MEAN CELL VOLUME 90 fl (80.0-100.0); MEAN CORPUSCULAR HEMOGLOBIN 32 pg (27-31); MEAN CORPUSCULAR HGB CONC 35 g/dl (33.0-37.0); MEAN PLATELET VOLUME 9.2 fl (7.4-10.4); MONO # 0.7 K/mm3 (0.1-0.6); MONO % 8.7 % (1.7-9.3); PLATELET COUNT 277 K/mm3 (130-400); RED BLOOD COUNT 4.53 M/mm3 (4.10-5.30); REDCELL DISTRIBUTION WIDTH-CV 11.9 % (11.5-14.5)
--- NOTE | 2021-06-20 01:18 | NUR ---
3 CONSECUTIVE BREATHING TREATMENTS GIVEN. SYMPTOMS STILL PRESENT, BUT MUCH IMPROVED. LS ONLY EXPIRATORY WHEEZING. 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 THIS THEN WORSENED HER COUGHING. RR HAS DECREASED FROM 44 TO 28. PT. STATES A SENSE OF IMPROVEMENT; WILL CONTINUE TO FOLLOW.
[2021-06-20 01:25] LABS: ALANINE AMINOTRANSFERASE 82 U/L (0-55); ALBUMIN 4.6 gm/dL (3.5-5.0); ALKALINE PHOSPHATASE 100 U/L (40-150); ANION GAP 17 mmol/L (7-16); AST,SGOT 73 U/L (5-34); BILIRUBIN,TOTAL 0.4 mg/dL (0.2-1.2); BLOOD UREA NITROGEN 10 mg/dL (7-19); CALCIUM 9.6 mg/dL (8.4-10.2); CARBON DIOXIDE 18 mmol/L (22-29); CHLORIDE 106 mmol/L (98-107); CREATININE, serum 0.95 mg/dL (0.57-1.11); GLUCOSE 93 mg/dL (70-99); POTASSIUM 3.7 mmol/L (3.5-4.5); SODIUM 141 mmol/L (136-145); TOTAL PROTEIN 7.8 gm/dL (6.2-8.1)
[2021-06-20 01:32] LABS: TROPONIN-I < 0.010 ng/mL (0.00-0.033)
[2021-06-20 03:12] VITALS: BP 139/98; PULSE 116
== END 2021-06-20 03:12 | disposition home or self-care (01) ==
LOC: COL.ER 00:41
PROVIDERS: Student in an Organized Health Care Education/Training Program
DX: J45.901 Unspecified asthma with (acute) exacerbation (principal); Z79.899 Other long term (current) drug therapy; Z79.52 Long term (current) use of systemic steroids
CPT/HCPCS: J2930; J3475

== ENCOUNTER 2021-06-27 21:20 | Observation (INO) | payer OTHER ==
[~2021-06-27] VITALS: Ht 162.6 cm; Wt 74.8 kg
[2021-06-27 22:05] LABS: BASO # 0.1 K/mm3 (0.0-0.2); BASO % 0.6 % (0.0-2.0); EOS % 7.2 % (0.0-4.0); GRAN # 7.1 K/mm3 (1.4-6.5); GRAN % 51.6 % (42.2-75.2); HEMATOCRIT 43.3 % (37.0-47.0); HEMOGLOBIN 15.3 g/dl (12.5-16.0); LYMPH # 4.3 K/mm3 (1.2-3.4); LYMPH % 30.8 % (20.0-51.0); MEAN CELL VOLUME 90 fl (80.0-100.0); MEAN CORPUSCULAR HEMOGLOBIN 32 pg (27-31); MEAN CORPUSCULAR HGB CONC 35 g/dl (33.0-37.0); MEAN PLATELET VOLUME 9.6 fl (7.4-10.4); MONO # 1.3 K/mm3 (0.1-0.6); MONO % 9.1 % (1.7-9.3); PLATELET COUNT 429 K/mm3 (130-400); RED BLOOD COUNT 4.82 M/mm3 (4.10-5.30)
[2021-06-27 22:54] LABS: ALBUMIN 4.2 gm/dL (3.5-5.0); BILIRUBIN,TOTAL 0.8 mg/dL (0.2-1.2); CALCIUM 9.7 mg/dL (8.4-10.2); CREATININE, serum 0.86 mg/dL (0.57-1.11); POTASSIUM 3.5 mmol/L (3.5-4.5); TOTAL PROTEIN 7.2 gm/dL (6.2-8.1)
[2021-06-27 23:45] VITALS: BP 133/85; PULSE 96; TEMP 97.1
--- NOTE | 2021-06-27 23:45 | NUR ---
ARRIVES VIA W/C TO ROOM 348
--- NOTE | 2021-06-28 04:10 | NUR ---
PT AWAKE, WATCHING HER COMPUTER. IV SOLUMEDROL GIVEN PER PATENT INT TO LEFT WRIST. REPORTS DRY COUGH, ON ROOM AIR. WILL MONITOR FOR CHANGES. IN NO APPARENT RESPIRATORY DISTRESS AT THIS TIME.
[2021-06-28 04:16] VITALS: BP 125/62; PULSE 74; TEMP 98.1
[2021-06-28 07:11] VITALS: BP 114/51; PULSE 103; TEMP 98.1
[2021-06-28 07:13] LABS: HEMATOCRIT 38.4 % (37.0-47.0); MEAN CELL VOLUME 94 fl (80.0-100.0); MEAN CORPUSCULAR HEMOGLOBIN 32 pg (27-31); MEAN CORPUSCULAR HGB CONC 34 g/dl (33.0-37.0); MEAN PLATELET VOLUME 9.8 fl (7.4-10.4); PLATELET COUNT 381 K/mm3 (130-400); RED BLOOD COUNT 4.08 M/mm3 (4.10-5.30); REDCELL DISTRIBUTION WIDTH-CV 12.2 % (11.5-14.5)
[2021-06-28 07:21] LABS: HEMOGLOBIN 12.9 g/dl (12.5-16.0)
[2021-06-28 07:43] LABS: CALCIUM 9.3 mg/dL (8.4-10.2); CREATININE, serum 0.91 mg/dL (0.57-1.11); POTASSIUM 3.7 mmol/L (3.5-4.5)
[2021-06-28 08:05] LABS: BAND 5 % (0-10); BASOPHIL 1 % (0-2)
[2021-06-28 08:06] LABS: LYMPHOCYTE 5 % (20.0-51.0); NEUTROPHILS 87 % (42.0-75.2); PLATELET ESTIMATE NORMAL (NORMAL)
--- NOTE | 2021-06-28 09:20 | NUR ---
Pt doing okay at this time. She does take very shallow breaths, but does report that she feels better than when she came in. She is currently sitting up in bed working on schoolwork. Pt has ordered breakfast, denies any other needs, call light within reach
[2021-06-28 11:09] VITALS: BP 119/67; PULSE 105; TEMP 98
--- NOTE | 2021-06-28 12:09 | NUR ---
Report given to Neha Sears RN
--- NOTE | 2021-06-28 13:11 | NUR ---
Benefits Consultant offered prayer and support with patient.
--- NOTE | 2021-06-28 14:58 | NUR ---
WANDY met with patient to complete intake. Patient states that she lives with a few roomates and that her point of contact is her son Christiano [phone]. Patient states that she does not utilize DME and is independent with ADL's. Patient provides that her P[facility] is [facility] and [facility]. Patient states that she does not have anyone appointed as her DPOA-HC at this time and does not wish to appoint anyone at this current time. Patient states she plans to return to her home in [place] upon DC and has no concerns with doing so. SW will continue to follow. DC plan: home
[2021-06-28 16:00] VITALS: BP 122/67; PULSE 119; TEMP 98.6
--- NOTE | 2021-06-28 20:00 | NUR ---
PT IN BED, WATCHING COMPUTER. REPORTS FEELING BETTER THAN ON ADMISSION, NO WHEEZING N0TED. HAS SL TO LEFT INNER WRIST, FLUSHES WELL. ON ROOM AIR.
[2021-06-28 20:15] VITALS: BP 126/61; PULSE 119; TEMP 98.4
[2021-06-29] VITALS (7 sets, daily range): BP systolic 110–124; BP diastolic 59–80; PULSE 79–121; TEMP 97.2–98.4
--- NOTE | 2021-06-29 00:20 | NUR ---
PLACED TELEMETRY ON PT PER DR ORDER. HR=96.
--- NOTE | 2021-06-29 05:00 | NUR ---
PT AWAKE, IV SOLUMEDROL GIVEN. PT DENIES NEEDS. TELEMETRY SHOWS SR/ST LOWER 100'S.
[2021-06-29 07:05] LABS: HEMOGLOBIN 12.2 g/dl (12.5-16.0); MEAN CELL VOLUME 93 fl (80.0-100.0); MEAN CORPUSCULAR HEMOGLOBIN 32 pg (27-31); MEAN CORPUSCULAR HGB CONC 34 g/dl (33.0-37.0); PLATELET COUNT 390 K/mm3 (130-400); RED BLOOD COUNT 3.86 M/mm3 (4.10-5.30); REDCELL DISTRIBUTION WIDTH-CV 12.6 % (11.5-14.5)
[2021-06-29 07:18] LABS: HEMATOCRIT 35.7 % (37.0-47.0)
[2021-06-29 07:19] LABS: CALCIUM 9.5 mg/dL (8.4-10.2); CREATININE, serum 0.8 mg/dL (0.57-1.11); POTASSIUM 3.9 mmol/L (3.5-4.5)
[2021-06-29 07:43] LABS: BAND 7 % (0-10); LYMPHOCYTE 5 % (20.0-51.0); NEUTROPHILS 82 % (42.0-75.2)
[2021-06-29 07:44] LABS: PLATELET ESTIMATE NORMAL (NORMAL)
--- NOTE | 2021-06-29 11:03 | NUR ---
PT ASSESSED. NO COMPLAINTS OF PAIN OR DYSPNEA. PTS HR IS EXCELERATED FROM BASELINE. NO OTHER COMPLAINTS OR CONCERNS. CALL LIGHT WIHTIN REACH
--- NOTE | 2021-06-29 20:00 | NUR ---
TELEMETRY SONIA'Angie.
--- NOTE | 2021-06-29 22:15 | NUR ---
PT WATCHING COMPUTER, DENIES NEEDS. HS MEDS GIVEN, SL TO INNER LEFT WRIST FLUSHES WELL, MILDLY TENDER. INDEPENDENT IN ROOM. FREE OF WHEEZING AT THIS TIME.
[2021-06-30 04:02] VITALS: BP 109/60; PULSE 83; TEMP 98.3
[2021-06-30 07:24] VITALS: BP 109/73; PULSE 78; TEMP 98.1
[2021-06-30 09:22] LABS: HEMATOCRIT 37.8 % (37.0-47.0); HEMOGLOBIN 12.7 g/dl (12.5-16.0); MEAN CELL VOLUME 95 fl (80.0-100.0); MEAN CORPUSCULAR HEMOGLOBIN 32 pg (27-31); MEAN CORPUSCULAR HGB CONC 34 g/dl (33.0-37.0); MEAN PLATELET VOLUME 9.7 fl (7.4-10.4); PLATELET COUNT 400 K/mm3 (130-400); RED BLOOD COUNT 3.97 M/mm3 (4.10-5.30); REDCELL DISTRIBUTION WIDTH-CV 12.4 % (11.5-14.5)
--- NOTE | 2021-06-30 09:36 | NUR ---
rita cleveland made aware of critical wbc
[2021-06-30 09:37] LABS: CALCIUM 9.1 mg/dL (8.4-10.2); CREATININE, serum 0.83 mg/dL (0.57-1.11); POTASSIUM 4.2 mmol/L (3.5-4.5)
--- NOTE | 2021-06-30 09:39 | NUR ---
Initial visit; Patient thanked Gravel Inspector for looking in on her and offering God's blessings.
--- NOTE | 2021-06-30 09:48 | NUR ---
Patient resting in bed working on her computer. I did call , Patient requesting her steroid be changed to PO-Dr.Sign reports he will round soon. Patient will not discharge today. Lungs clear after RT treatment. Will monitor.
[2021-06-30 10:06] LABS: BAND 1 % (0-10); LYMPHOCYTE 4 % (20.0-51.0); NEUTROPHILS 94 % (42.0-75.2); PLATELET ESTIMATE NORMAL (NORMAL)
[2021-06-30 11:21] VITALS: BP 136/78; PULSE 87; TEMP 98.2
--- NOTE | 2021-06-30 12:18 | NUR ---
Patient resting without needs at this time, trying to nap
--- NOTE | 2021-06-30 13:41 | NUR ---
Spoke with patient on the status of her insurance. Patient reports that her VA Authorization had lapsed but that she has since been in contact with the VA and her PCP to initiate a new authorization. Notified Dr. Murguia's office of the above. Discharge plan: Home
[2021-06-30 15:42] VITALS: BP 127/76; PULSE 96; TEMP 98.1
--- NOTE | 2021-06-30 17:38 | NUR ---
Patient resting in bed. minimal needs. Predisone given. Will monitor.
--- NOTE | 2021-06-30 20:00 | NUR ---
RECEIVED CHANGE OF SHIFT REPORT FROM DAY SHIFT RN.
[2021-06-30 21:00] VITALS: BP 114/70; PULSE 80; TEMP 98.4
[2021-07-01 00:37] VITALS: BP 118/70; PULSE 81; TEMP 98.2
[2021-07-01 04:46] VITALS: BP 122/83; PULSE 70; TEMP 97.8
--- NOTE | 2021-07-01 07:22 | NUR ---
CHANGE OF SHIFT REPORT GIVEN TO DAY SHIFT RNFLORIN.
[2021-07-01 07:33] VITALS: BP 131/84; PULSE 64; TEMP 97.9
--- NOTE | 2021-07-01 07:41 | NUR ---
Pt assessment complete. Pt is sitting up in bed upon entry, she is A/O x4. Her breathing is even and unlabored on RA. Pt denies SOB. Occasional nonproductive cough present. Pt denies any pain. No further needs at this time. Call light within reach.
[2021-07-01 08:19] LABS: MEAN CELL VOLUME 93 fl (80.0-100.0); MEAN CORPUSCULAR HEMOGLOBIN 31 pg (27-31); MEAN CORPUSCULAR HGB CONC 33 g/dl (33.0-37.0); MEAN PLATELET VOLUME 9.8 fl (7.4-10.4); PLATELET COUNT 359 K/mm3 (130-400); RED BLOOD COUNT 3.86 M/mm3 (4.10-5.30); REDCELL DISTRIBUTION WIDTH-CV 12.4 % (11.5-14.5)
[2021-07-01 08:25] LABS: ALBUMIN 3.5 gm/dL (3.5-5.0); CALCIUM 8.8 mg/dL (8.4-10.2); CREATININE, serum 0.74 mg/dL (0.57-1.11); MAGNESIUM 2.7 mg/dL (1.6-2.6); PHOSPHOROUS 4.1 mg/dL (2.3-4.7); POTASSIUM 4.1 mmol/L (3.5-4.5)
[2021-07-01 09:47] LABS: LYMPHOCYTE 12 % (20.0-51.0); METAMYELOCYTE 1 % (0-0); NEUTROPHILS 81 % (42.0-75.2); PLATELET ESTIMATE NORMAL (NORMAL)
[2021-07-01] MEDS ORDERED: PREDNISONE10 MG PO (10:24)
--- NOTE | 2021-07-01 11:34 | NUR ---
Discharge paperwork and instructions reviewed with patient. All questions answered at this time. IV removed from LWrist, catheter tip intact.
--- NOTE | 2021-07-01 11:49 | NUR ---
Pt walked out of facility with staff member at this time.
[2021-07-02 08:14] LABS: PATHOLOGY DIFF REVIEW OK
== END 2021-07-01 11:50 | disposition home or self-care (01) ==
LOC: COL.ER 21:20 → SURG 23:01
PROVIDERS: Emergency Medicine; Internal Medicine; Physician Assistant; Student in an Organized Health Care Education/Training Program; ADMIT Student in an Organized Health Care Education/Training Program
DX: J45.51 Severe persistent asthma with (acute) exacerbation (principal); D72.819 Decreased white blood cell count, unspecified; R74.01 Elevation of levels of liver transaminase levels; K21.9 Gastro-esophageal reflux disease without esophagitis; Z79.899 Other long term (current) drug therapy; Z90.710 Acquired absence of both cervix and uterus; Z20.822 Contact with and (suspected) exposure to COVID-19; Z87.891 Personal history of nicotine dependence
CPT/HCPCS: 99233-AI; 99239; G0378; J2920; J2930; J3475; J7030; J7512

== ENCOUNTER 2021-09-25 19:35 | Emergency (ER) | payer OTHER ==
[~2021-09-25] VITALS: Ht 162.6 cm; Wt 72.7 kg
[2021-09-25 19:39] VITALS: TEMP 98
[2021-09-25] MEDS ORDERED: PREDNISONE20 MG PO (20:47)
[2021-09-25 20:53] VITALS: BP 138/78; PULSE 64
== END 2021-09-25 20:53 | disposition home or self-care (01) ==
LOC: COL.ER 19:35
DX: J45.901 Unspecified asthma with (acute) exacerbation (principal)
CPT/HCPCS: J7512